=== PATIENT | female | born 1970 | race Caucasian/White ===

== ENCOUNTER 2019-11-16 21:13 | Emergency (ER) | payer OTHER ==
[~2019-11-16] VITALS: Ht 165.1 cm; Wt 72.6 kg
[2019-11-16 21:21] VITALS: Ht 165.1 cm; Wt 72.6 kg
[2019-11-17 00:13] VITALS: BP 123/91
== END 2019-11-17 00:15 | disposition home or self-care (01) ==
LOC: ED 21:13
DX: S00.83XA Contusion of other part of head, initial encounter (principal); S81.011A Laceration without foreign body, right knee, initial encounter; S40.211A Abrasion of right shoulder, initial encounter; S60.512A Abrasion of left hand, initial encounter; S60.511A Abrasion of right hand, initial encounter; R11.0 Nausea; J45.909 Unspecified asthma, uncomplicated; V29.9XXA Motorcycle rider (driver) (passenger) injured in unspecified traffic accident, initial encounter; Y93.55 Activity, bike riding; Y92.488 Other paved roadways as the place of occurrence of the external cause; Y99.8 Other external cause status
CPT/HCPCS: 90715; J2001; Q0092